=== PATIENT | female | born 1950 | race Caucasian/White ===

== ENCOUNTER 2016-07-17 08:44 | Outpatient (CLI) | payer OTHER | END 2016-07-17 08:45 | disposition home or self-care (01) | DX: E78.5 Hyperlipidemia, unspecified (principal) ==

== ENCOUNTER 2016-12-02 09:14 | Outpatient (CLI) | payer OTHER ==
[2016-12-02 19:51] LABS: ALBUMIN/GLOBULIN RATIO 1.4 (1.0-2.2); BILIRUBIN,TOTAL 0.6 mg/dL (0.2-1.0); BUN - BLOOD UREA NITROGEN 12 mg/dL (6-20); CALCIUM 9.5 mg/dL (8.5-10.3); CARBON DIOXIDE - CO2 23 mmol/L (21-32); CHLORIDE 107 mmol/L (101-111); CHOL/HDL RATIO 3.6 (<4.4); CHOLESTEROL 138 mg/dL; CREATININE 0.6 mg/dL (0.4-1.0); GFR - MDRD 101 (>89); GLUCOSE 108 mg/dL (70-100); HDL CHOLESTEROL 38 mg/dL; LDL/HDL RATIO 1.2 (<4.4); POTASSIUM 4.1 mmol/L (3.5-5.0); SODIUM 142 mmol/L (135-145); TOTAL PROTEIN 7.3 g/dL (6.7-8.2); TRIGLYCERIDES 278 mg/dL; VLDL CHOLESTEROL 56 mg/dL
[2016-12-02 20:35] LABS: HEMOGLOBIN A1C 0.61 g/dL
== END 2016-12-02 09:15 | disposition home or self-care (01) ==
LOC: LAB.F 09:14
PROVIDERS: ATTEND Nurse Practitioner Family
DX: E78.5 Hyperlipidemia, unspecified (principal); R73.01 Impaired fasting glucose
CPT/HCPCS: 36415; 80053; 80061; 83036

== ENCOUNTER 2017-07-24 09:15 | Outpatient (CLI) | payer MEDICARE, OTHER ==
[2017-07-24 17:47] LABS: BASOPHILS # (AUTO) 0.1 10^3/uL (0.0-0.1); BASOPHILS % (AUTO) 0.9 %; EOSINOPHILS # (AUTO) 0.5 10^3/uL (0.0-0.7); EOSINOPHILS % (AUTO) 5.7 %; HGB - HEMOGLOBIN 12.3 g/dL (12.0-16.0); LYMPHOCYTES # (AUTO) 1.9 10^3/uL (1.5-3.5); LYMPHOCYTES % (AUTO) 22.5 %; MEAN CORPUSCULAR HEMOGLOBIN 28.2 pg (27.0-31.0); MEAN CORPUSCULAR HGB CONC 32.3 g/dL (32.0-36.0); MEAN CORPUSCULAR VOLUME 87.1 fL (81.0-99.0); MEAN PLATELET VOLUME 7.4 fL (7.9-10.8); MONOCYTES # (AUTO) 0.6 10^3/uL (0.0-1.0); MONOCYTES % (AUTO) 7.6 %; NEUTROPHILS # (AUTO) 5.4 10^3/uL (1.5-6.6); NEUTROPHILS % (AUTO) 63.3 %; PLT - PLATELET COUNT 363 10^3/uL (130-450); RED BLOOD COUNT 4.36 10^6/uL (4.20-5.40); WHITE BLOOD COUNT 8.4 x10^3/uL (4.8-10.8)
[2017-07-24 18:32] LABS: ALBUMIN 4.2 g/dL (3.2-5.5); ALBUMIN/GLOBULIN RATIO 1.3 (1.0-2.2); BILIRUBIN,TOTAL 0.6 mg/dL (0.2-1.0); CALCIUM 8.8 mg/dL (8.5-10.3); CREATININE 0.5 mg/dL (0.4-1.0); TOTAL PROTEIN 7.4 g/dL (6.7-8.2); URIC ACID 6.4 mg/dL (2.6-7.2)
[2017-07-24 19:38] LABS: HEMOGLOBIN A1C 0.56 g/dL; HEMOGLOBIN A1C % 5.8 % (4.6-6.2)
== END 2017-07-24 09:16 | disposition home or self-care (01) ==
LOC: LAB.F 09:15
PROVIDERS: ATTEND Nurse Practitioner Family
DX: M79.672 Pain in left foot (principal); R73.01 Impaired fasting glucose
CPT/HCPCS: 36415; 80053; 83036; 84550; 85025

== ENCOUNTER 2018-05-26 09:51 | Outpatient (CLI) | payer MEDICARE, OTHER ==
[2018-05-26 17:57] LABS: BASOPHILS % (AUTO) 0.4 %; EOSINOPHILS # (AUTO) 0.4 10^3/uL (0.0-0.7); EOSINOPHILS % (AUTO) 5.4 %; HGB - HEMOGLOBIN 10.8 g/dL (12.0-16.0); LYMPHOCYTES # (AUTO) 1.7 10^3/uL (1.5-3.5); LYMPHOCYTES % (AUTO) 21.8 %; MEAN CORPUSCULAR HEMOGLOBIN 23.5 pg (27.0-31.0); MEAN CORPUSCULAR HGB CONC 30.7 g/dL (32.0-36.0); MEAN CORPUSCULAR VOLUME 76.6 fL (81.0-99.0); MEAN PLATELET VOLUME 7.6 fL (7.9-10.8); MONOCYTES # (AUTO) 0.6 10^3/uL (0.0-1.0); MONOCYTES % (AUTO) 7.8 %; NEUTROPHILS % (AUTO) 64.6 %; PLT - PLATELET COUNT 424 10^3/uL (130-450); RED BLOOD COUNT 4.59 10^6/uL (4.20-5.40); RED CELL DISTRIBUTION WIDTH 17.4 % (12.0-15.0); WHITE BLOOD COUNT 7.8 x10^3/uL (4.8-10.8)
[2018-05-26 18:10] LABS: ALBUMIN 4.1 g/dL (3.2-5.5); ALBUMIN/GLOBULIN RATIO 1.1 (1.0-2.2); ALKALINE PHOSPHATASE 97 IU/L (42-121); ALT ALANINE AMINOTRANSFERASE 62 IU/L (10-60); AST ASPARTATE AMINOTRANSFERASE 81 IU/L (10-42); BILIRUBIN,TOTAL 0.6 mg/dL (0.2-1.0); BUN - BLOOD UREA NITROGEN 15 mg/dL (6-20); CALCIUM 9.3 mg/dL (8.5-10.3); CARBON DIOXIDE - CO2 25 mmol/L (21-32); CHLORIDE 104 mmol/L (101-111); CHOL/HDL RATIO 3.6 (<4.4); CHOLESTEROL 133 mg/dL; CREATININE 0.5 mg/dL (0.4-1.0); GFR - MDRD 123 (>89); GLUCOSE 118 mg/dL (70-100); HB2 TOTAL 11.3 g/dL; HDL CHOLESTEROL 37 mg/dL; HEMOGLOBIN A1C 0.52 g/dL; HEMOGLOBIN A1C % 6.4 % (4.6-6.2); LDL CHOLESTEROL,CALCULATED 38 mg/dL; SODIUM 139 mmol/L (135-145); TOTAL PROTEIN 7.7 g/dL (6.7-8.2); VLDL CHOLESTEROL 58 mg/dL
== END 2018-05-26 09:52 | disposition home or self-care (01) ==
LOC: LAB.F 09:51
PROVIDERS: ATTEND Nurse Practitioner Family
DX: E78.5 Hyperlipidemia, unspecified (principal); R73.01 Impaired fasting glucose; F41.8 Other specified anxiety disorders
CPT/HCPCS: 36415; 80053; 80061; 83036; 83721; 84443; 85025

== ENCOUNTER 2018-06-14 11:10 | Outpatient (CLI) | payer MEDICARE, OTHER ==
[2018-06-14 18:15] LABS: % IRON SATURATION 5 % (20-50); IRON 26 ug/dL (28-170); TOTAL IRON BINDING CAPACITY 524 ug/dL (250-450); TRANSFERRIN 374 mg/dL (192-382)
== END 2018-06-14 11:11 | disposition home or self-care (01) ==
LOC: LAB.F 11:10
PROVIDERS: ATTEND Nurse Practitioner Family
DX: D50.9 Iron deficiency anemia, unspecified (principal)
CPT/HCPCS: 36415; 82728; 83540; 84466

== ENCOUNTER 2018-07-22 11:17 | Outpatient (CLI) | payer MEDICARE, OTHER | END 2018-07-22 11:18 | disposition home or self-care (01) | LOC: LAB.F 11:17 | PROVIDERS: ATTEND Nurse Practitioner Family | DX: D50.9 Iron deficiency anemia, unspecified (principal) | CPT/HCPCS: 36415; 82728 ==

== ENCOUNTER 2018-07-22 12:13 | Outpatient (CLI) | payer MEDICARE, OTHER ==
--- NOTE | 2018-07-22 14:37 | XRAY Report ---
Reason: FINGER PAIN,RIGHT Procedure Date: 07/22/2018 Accession Number: [id number] / [id number] Procedure: XR - Hand 3 View BILAT CPT Code: FULL RESULT: EXAMS: 1. Right Hand Radiography 2. Left Hand Radiography EXAM DATE: 07/22/2018 12:41 PM. CLINICAL HISTORY: Finger pain, right. COMPARISON: None. TECHNIQUE: 3 views each hand. FINDINGS: Right: Bones: Normal. No fractures or bone lesions. Joints: Mild joint space narrowing of multiple interphalangeal joints and mild to moderate degenerative changes of the first carpometacarpal interface. No timothy subluxation. Soft Tissues: Normal. No soft tissue swelling. Left: Bones: Normal. No fractures or bone lesions. Joints: Mild joint space narrowing of interphalangeal joints without erosions detected. Mild degenerative changes at the base of the thumb. Soft Tissues: 1 mm angular calcific density projecting over the soft tissues medial to the third proximal interphalangeal joint, correlate to prior trauma. IMPRESSION: Osteoarthrosis. RADIA
== END 2018-07-22 12:14 | disposition home or self-care (01) ==
LOC: DI 12:13
PROVIDERS: ATTEND Nurse Practitioner Family
DX: M19.042 Primary osteoarthritis, left hand (principal); M19.041 Primary osteoarthritis, right hand; D50.9 Iron deficiency anemia, unspecified
CPT/HCPCS: 36415; 82728

== ENCOUNTER 2018-07-29 13:22 | Outpatient (CLI) | payer MEDICARE, OTHER ==
[2018-07-29 17:20] LABS: BASOPHILS # (AUTO) 0.1 10^3/uL (0.0-0.1); EOSINOPHILS # (AUTO) 0.4 10^3/uL (0.0-0.7); EOSINOPHILS % (AUTO) 4.6 %; HGB - HEMOGLOBIN 12.8 g/dL (12.0-16.0); LYMPHOCYTES # (AUTO) 2.2 10^3/uL (1.5-3.5); LYMPHOCYTES % (AUTO) 28.4 %; MEAN CORPUSCULAR HEMOGLOBIN 25.5 pg (27.0-31.0); MEAN CORPUSCULAR HGB CONC 31.3 g/dL (32.0-36.0); MEAN CORPUSCULAR VOLUME 81.5 fL (81.0-99.0); MEAN PLATELET VOLUME 7.7 fL (7.9-10.8); MONOCYTES # (AUTO) 0.5 10^3/uL (0.0-1.0); MONOCYTES % (AUTO) 6.8 %; NEUTROPHILS # (AUTO) 4.7 10^3/uL (1.5-6.6); NEUTROPHILS % (AUTO) 59.2 %; PLT - PLATELET COUNT 372 10^3/uL (130-450); RED BLOOD COUNT 5.01 10^6/uL (4.20-5.40); RED CELL DISTRIBUTION WIDTH 25.8 % (12.0-15.0); WHITE BLOOD COUNT 7.8 x10^3/uL (4.8-10.8)
[2018-07-29 17:54] LABS: % IRON SATURATION 9 % (20-50); IRON 40 ug/dL (28-170); TOTAL IRON BINDING CAPACITY 426 ug/dL (250-450); TRANSFERRIN 304 mg/dL (192-382)
[2018-07-29 18:15] LABS: PLATELET ESTIMATE, MANUAL NORMAL (130-450,000) (NORMAL); PLATELET MORPHOLOGY NORMAL APPEARANCE (NORMAL)
[2018-07-29 18:16] LABS: RBC MORPHOLOGY (MULTIPLE) 2+ ANISOCYTOSIS (NORMAL)
== END 2018-07-29 13:23 | disposition home or self-care (01) ==
LOC: LAB.F 13:22
PROVIDERS: ATTEND Nurse Practitioner Family
DX: D50.9 Iron deficiency anemia, unspecified (principal)
CPT/HCPCS: 36415; 83540; 84466; 85025

== ENCOUNTER 2018-10-07 11:08 | Outpatient (CLI) | payer MEDICARE, OTHER ==
--- NOTE | 2018-10-07 12:25 | Ultrasound Report ---
Reason: FAMILY AND PERSONAL HX OF BLOOD DISORDER Procedure Date: 10/07/2018 Accession Number: [id number] / [id number] Procedure: US - Duplex Ext Veins Left CPT Code: FULL RESULT: EXAM: LEFT LOWER EXTREMITY VENOUS ULTRASOUND EXAM DATE: 10/07/2018 11:25 AM. CLINICAL HISTORY: FAMILY AND PERSONAL HISTORY OF BLOOD DISORDER. COMPARISON: None. TECHNIQUE: Real-time sonographic vascular imaging was performed by the relationship banker through the lower extremity utilizing both color-flow and Doppler spectral analysis. Multiple small business representative static images were saved for review. FINDINGS: Common Femoral Vein (CFV): Normal. CFV-GSV Junction: Normal. Profunda Femoral Vein (PFV): Normal. Femoral Vein (FV) Prox: Normal. Femoral Vein (FV) Mid: Normal. Femoral Vein (FV) Dist: Normal. Popliteal Vein: Normal. Posterior Tibial Veins: Normal. Peroneal Veins: Normal. Contralateral Side CFV: Normal. Other: None. IMPRESSION: No evidence for left lower extremity deep venous thrombosis. RADIA
== END 2018-10-07 11:09 | disposition home or self-care (01) ==
LOC: DI 11:08
PROVIDERS: ATTEND Internal Medicine Hematology & Oncology
DX: Z86.718 Personal history of other venous thrombosis and embolism (principal); Z79.01 Long term (current) use of anticoagulants; D68.51 Activated protein C resistance; D68.2 Hereditary deficiency of other clotting factors

== ENCOUNTER 2018-11-26 12:30 | Outpatient (CLI) | payer MEDICARE, OTHER | END 2018-11-26 12:31 | disposition home or self-care (01) | LOC: LAB.S 12:30 | PROVIDERS: ATTEND Registered Nurse | DX: M79.644 Pain in right finger(s) (principal) | CPT/HCPCS: 36415; 84550 ==

== ENCOUNTER 2018-12-03 10:23 | Outpatient (CLI) | payer MEDICARE, OTHER ==
--- NOTE | 2018-12-06 15:39 | Mammography Report ---
Reason: ROUTINE MAMMO Procedure Date: 12/03/2018 Accession Number: [id number] / [id number] Procedure: MELINDA - Screening Mammo w/Alex CPT Code: FULL RESULT: EXAM: Screening Mammo w/Alex DATE: 12/03/2018 11:01 AM CLINICAL HISTORY: Routine screening TECHNIQUE: (B) - Bilateral CC and MLO views were obtained. COMPARISON: 08/07/2015, 04/08/2013, 02/05/2012 and 02/02/2010 PARENCHYMAL PATTERN: (D) - The breasts demonstrate heterogeneously dense fibroglandular parenchyma bilaterally. FINDINGS: No significant interval change. There are no suspicious masses, calcifications, or areas of distortion. Several scattered nodular densities in both breasts are grossly stable allowing for technical differences. IMPRESSION: Negative examination. BI-RADS category 1. RECOMMENDATION: (ANNUAL) - Recommend routine annual screening mammography. BI-RADS CATEGORY: (1) - Negative. STANDARD QUALIFYING STATEMENTS: 1. This examination was not reviewed with the aid of Computer-Aided Detection (CAD). 2. A negative or benign imaging report should not preclude biopsy if clinically suspicious findings are present. 3. Dense breasts may obscure an underlying neoplasm. 4. This examination was reviewed with the aid of 3D breast imaging (tomosynthesis).
== END 2018-12-03 10:24 | disposition home or self-care (01) ==
LOC: DI 10:23
DX: Z00.00 Encounter for general adult medical examination without abnormal findings (principal); Z12.31 Encounter for screening mammogram for malignant neoplasm of breast; Z78.0 Asymptomatic menopausal state
CPT/HCPCS: 77063; 77067

== ENCOUNTER 2019-05-27 08:17 | Outpatient (CLI) | payer MEDICARE, OTHER ==
[2019-05-27 10:29] LABS: BASOPHILS # (AUTO) 0.1 10^3/uL (0.0-0.1); BASOPHILS % (AUTO) 0.7 %; EOSINOPHILS # (AUTO) 0.6 10^3/uL (0.0-0.7); LYMPHOCYTES # (AUTO) 2.3 10^3/uL (1.5-3.5); LYMPHOCYTES % (AUTO) 28.6 %; MEAN CORPUSCULAR HGB CONC 31.1 g/dL (32.0-36.0); MEAN CORPUSCULAR VOLUME 90.1 fL (81.0-99.0); MEAN PLATELET VOLUME 9.3 fL (7.9-10.8); MONOCYTES # (AUTO) 0.6 10^3/uL (0.0-1.0); MONOCYTES % (AUTO) 7.6 %; NEUTROPHILS # (AUTO) 4.6 10^3/uL (1.5-6.6); NEUTROPHILS % (AUTO) 55.7 %; PLT - PLATELET COUNT 326 10^3/uL (130-450); RED BLOOD COUNT 4.64 10^6/uL (4.20-5.40); RED CELL DISTRIBUTION WIDTH 14.6 % (12.0-15.0); WHITE BLOOD COUNT 8.2 x10^3/uL (4.8-10.8)
[2019-05-27 10:46] LABS: ALBUMIN/GLOBULIN RATIO 1.2 (1.0-2.2); ALKALINE PHOSPHATASE 72 IU/L (42-121); ALT ALANINE AMINOTRANSFERASE 49 IU/L (10-60); AST ASPARTATE AMINOTRANSFERASE 43 IU/L (10-42); BILIRUBIN,TOTAL 0.7 mg/dL (0.2-1.0); BUN - BLOOD UREA NITROGEN 22 mg/dL (6-20); CALCIUM 9.3 mg/dL (8.5-10.3); CARBON DIOXIDE - CO2 23 mmol/L (21-32); CHLORIDE 105 mmol/L (101-111); CHOL/HDL RATIO 4.5 (<4.4); CHOLESTEROL 174 mg/dL; CREATININE 0.7 mg/dL (0.4-1.0); GFR - MDRD 83 (>89); GLUCOSE 129 mg/dL (70-100); HDL CHOLESTEROL 39 mg/dL; SODIUM 138 mmol/L (135-145); TOTAL PROTEIN 7.4 g/dL (6.7-8.2)
[2019-05-27 11:32] LABS: LDL CHOLESTEROL,DIRECT 74 mg/dL; LDLD/HDL RATIO 1.9 (<4.4)
== END 2019-05-27 08:18 | disposition home or self-care (01) ==
LOC: LAB.S 08:17
PROVIDERS: ATTEND Registered Nurse
DX: D50.9 Iron deficiency anemia, unspecified (principal); I10 Essential (primary) hypertension; F41.8 Other specified anxiety disorders; E66.9 Obesity, unspecified; R73.01 Impaired fasting glucose; E78.5 Hyperlipidemia, unspecified; Z83.2 Family history of diseases of the blood and blood-forming organs and certain disorders involving the immune mechanism
CPT/HCPCS: 36415; 80053; 80061; 83721; 84443; 85025

== ENCOUNTER 2019-09-08 13:23 | Outpatient (CLI) | payer MEDICARE, OTHER ==
--- NOTE | 2019-09-09 08:52 | Mammography Report ---
UNILATERAL RIGHT DIGITAL DIAGNOSTIC MAMMOGRAM 3D/2D: 09/08/2019 CLINICAL: Focal right breast pain. Comparison is made to exams dated: 12/03/2018 mammogram and 08/07/2015 mammogram - [facility]. There are scattered fibroglandular elements in right breast. No significant masses, calcifications, or other findings are seen in the breast. The patient is curr ently asymptomatic and has no palpable masses. Patient has been asymptomatic approximately 6 weeks from time of onset of pain in May 2019. IMPRESSION: NEGATIVE There is no abnormality seen in the right breast to correspond with previous area of clinical concern and pain indicated by square marker in the anterior depth in the outer aspect which has since resolv ed. There is no mammographic evidence of malignancy. Stable mammographic evaluation since most recent scr eening mammogram dated 12/03/2018. A follow-up bilateral mammogram in 6 months is recommended to return patient to bilateral screening s [facility]. This exam was interpreted at Station ID: [id number]. NOTE: For mammograms, a report in lay terms will be sent to the patient. Approximately 15% of breast malignancies will not be visualized mammographically. In the management of a palpable breast mass, a negative mammogram must not discourage biopsy of a clinically suspicious lesion. Electronically Signed By: Ron Mireles M.D. aty/:09/08/2019 14:27:21 ACR BI-RADS Category 1: Negative 3341F PARENCHYMAL PATTERN: (A) - The breast(s) demonstrate(s) scattered fibroglandular densities. BI-RADS CATEGORY: (1) - 1 Mammogram [id number] 6 month follow-up LATERALITY: (B)
== END 2019-09-08 13:24 | disposition home or self-care (01) ==
LOC: DI 13:23
PROVIDERS: ATTEND Registered Nurse
DX: N64.4 Mastodynia (principal)
CPT/HCPCS: 77065; G0279

== ENCOUNTER 2019-12-15 15:23 | Outpatient (CLI) | payer MEDICARE, OTHER ==
--- NOTE | 2019-12-15 16:17 | XRAY Report ---
PROCEDURE: Cervical Spine 2 View INDICATIONS: NECK PAIN TECHNIQUE: 3 view(s) of the cervical spine were acquired. COMPARISON: None. FINDINGS: Bones: No fractures or dislocations to the C7 level. The lateral masses of C1 appear intact on the odontoid view. No suspicious bony lesions. There is grade IC4 on C5 anterolisthesis. Mild osteophyt osis is present within the mid cervical spine. There is slightly exaggerated cervical lordosis. Soft tissues: No prevertebral soft tissue swelling. IMPRESSION: Mild degenerative change. Reviewed by: Blanca Pineda MD on 12/15/2019 4:16 PM PDT Approved by: Blanca Pineda MD on 12/15/2019 4:16 PM PDT Station ID: [id number]
== END 2019-12-15 15:24 | disposition home or self-care (01) ==
LOC: DI.S 15:23
PROVIDERS: ATTEND Family Medicine
DX: M50.321 Other cervical disc degeneration at C4-C5 level (principal)
CPT/HCPCS: 72040

== ENCOUNTER 2019-12-24 11:10 | Outpatient (CLI) | payer MEDICARE, OTHER ==
--- NOTE | 2019-12-24 18:36 | Ultrasound Report ---
PROCEDURE: Pelvic w/Transvaginal INDICATIONS: VAGINAL BLEEDING TECHNIQUE: Real-time scanning was performed of the pelvic organs, with image documentation. Additional endovagi nal scanning was necessary due to incomplete visualization of the adnexal and endometrial structures by transabdominal scanning. COMPARISON: None. FINDINGS: Transabdominal scanning: Limited scanning through the kidneys shows no hydronephrosis. No pathologi c free abdominal or pelvic fluid. Endovaginal scanning: Uterus: Uterus is normal in size at 6.5 x 3.9 x 5 cm. The endometrium measures 8 mm in combined thi ckness. Within the endometrial stripe, there is a likely polyp seen that measures 9 x 3 mm, with ass ociated vascularity. Along the left anterior uterus, there is intramural/submucosal fibroid seen that measures 2.5 x 2.5 x 2.5 cm. Nabothian cysts are incidentally noted. Ovaries: The right ovary measures 1.5 x 1.5 x 1.6 cm and the left ovary measures 1.8 x 0.9 x 1.1 cm. No significant ovarian abnormalities are seen. No adnexal masses are seen. IMPRESSION: The endometrial stripe is abnormally thickened in this patient with a presenting history of postmenop ausal bleeding. There is an apparent 9 x 3 mm polyp seen, with increased vascularity. Differential di agnosis includes endometrial hyperplasia and endometrial carcinoma. Please consider correlation with endometrial histology, as clinically appropriate. Reviewed by: Wisam Tracy MD on 12/24/2019 5:35 PM POOJA Approved by: Wisam Tracy MD on 12/24/2019 5:35 PM AKFELECIA Station ID: [id number]
== END 2019-12-24 11:11 | disposition home or self-care (01) ==
LOC: DI 11:10
PROVIDERS: ATTEND Family Medicine
DX: N93.9 Abnormal uterine and vaginal bleeding, unspecified (principal); R93.89 Abnormal findings on diagnostic imaging of other specified body structures
CPT/HCPCS: 76830; 76856

== ENCOUNTER 2020-01-25 10:05 | Outpatient (CLI) | payer MEDICARE, OTHER ==
[2020-01-25 15:35] LABS: BASOPHILS # (AUTO) 0.1 10^3/uL (0.0-0.1); BASOPHILS % (AUTO) 0.9 %; EOSINOPHILS # (AUTO) 0.4 10^3/uL (0.0-0.7); EOSINOPHILS % (AUTO) 4.9 %; HGB - HEMOGLOBIN 13.2 g/dL (12.0-16.0); LYMPHOCYTES # (AUTO) 2.7 10^3/uL (1.5-3.5); LYMPHOCYTES % (AUTO) 31.9 %; MEAN CORPUSCULAR HEMOGLOBIN 29.1 pg (27.0-31.0); MEAN CORPUSCULAR VOLUME 91.2 fL (81.0-99.0); MEAN PLATELET VOLUME 9.3 fL (7.9-10.8); MONOCYTES # (AUTO) 0.6 10^3/uL (0.0-1.0); MONOCYTES % (AUTO) 7.1 %; NEUTROPHILS # (AUTO) 4.7 10^3/uL (1.5-6.6); PLT - PLATELET COUNT 335 10^3/uL (130-450); RED BLOOD COUNT 4.53 10^6/uL (4.20-5.40); RED CELL DISTRIBUTION WIDTH 15.3 % (12.0-15.0); WHITE BLOOD COUNT 8.6 x10^3/uL (4.8-10.8)
[2020-01-25 15:52] LABS: ALBUMIN/GLOBULIN RATIO 1.2 (1.0-2.2); BILIRUBIN,TOTAL 0.7 mg/dL (0.2-1.0); CALCIUM 9.4 mg/dL (8.5-10.3); CREATININE 0.9 mg/dL (0.4-1.0); TOTAL PROTEIN 7.4 g/dL (6.7-8.2)
[2020-01-25 15:54] LABS: CREATININE,URINE 104.3 mg/dL; MICROALBUMIN,URINE 31.5 mg/dL (0-300.0)
[2020-01-25 19:52] LABS: HEMOGLOBIN A1c% 6.1 % (4.27-6.07)
== END 2020-01-25 10:06 | disposition home or self-care (01) ==
LOC: LAB.S 10:05
PROVIDERS: ATTEND Registered Nurse
DX: E66.9 Obesity, unspecified (principal); R73.03 Prediabetes; Z86.2 Personal history of diseases of the blood and blood-forming organs and certain disorders involving the immune mechanism; N93.9 Abnormal uterine and vaginal bleeding, unspecified
CPT/HCPCS: 36415; 80053; 82043; 82570; 83036; 85025

== ENCOUNTER 2020-02-03 14:40 | Outpatient (CLI) | payer MEDICARE ==
[2020-02-03 15:30] LABS: BASOPHILS % (AUTO) 0.5 %; EOSINOPHILS # (AUTO) 0.4 10^3/uL (0.0-0.7); EOSINOPHILS % (AUTO) 4.4 %; LYMPHOCYTES # (AUTO) 2.4 10^3/uL (1.5-3.5); LYMPHOCYTES % (AUTO) 28.8 %; MEAN CORPUSCULAR HGB CONC 31.9 g/dL (32.0-36.0); MEAN CORPUSCULAR VOLUME 90.9 fL (81.0-99.0); MEAN PLATELET VOLUME 8.8 fL (7.9-10.8); MONOCYTES # (AUTO) 0.7 10^3/uL (0.0-1.0); MONOCYTES % (AUTO) 8.6 %; NEUTROPHILS # (AUTO) 4.8 10^3/uL (1.5-6.6); NEUTROPHILS % (AUTO) 57.2 %; PLT - PLATELET COUNT 324 10^3/uL (130-450); RED BLOOD COUNT 4.49 10^6/uL (4.20-5.40); RED CELL DISTRIBUTION WIDTH 14.9 % (12.0-15.0); WHITE BLOOD COUNT 8.4 x10^3/uL (4.8-10.8)
== END 2020-02-03 14:41 | disposition home or self-care (01) ==
LOC: LAB 14:40
PROVIDERS: ATTEND Obstetrics & Gynecology
DX: Z01.812 Encounter for preprocedural laboratory examination (principal); N95.0 Postmenopausal bleeding; N84.0 Polyp of corpus uteri; Z20.828 Contact with and (suspected) exposure to other viral communicable diseases
CPT/HCPCS: 36415; 85025; U0004

== ENCOUNTER 2020-02-08 12:06 | Day surgery (SDC) | payer MEDICARE, OTHER ==
[~2020-02-08 12:06] MED LIST: ACETAMINOPHEN 1,000 MG/100 ML 100 ML IV ONE; CELECOXIB 100 MG CAPSULE PO ONE; GABAPENTIN 400 MG CAPSULE ONE
[2020-02-08] MEDS ORDERED: ONDANSETRON 4 MG/2 ML VIAL IVP ONE (12:07)
[2020-02-08] MEDS ORDERED: ePHEDrine 50 MG/ML VIAL IVP ONE (12:07)
[2020-02-08] MEDS ORDERED: MIDAZOLAM 2 MG/2 ML VIAL IVP ONE (12:07)
[2020-02-08] MEDS ORDERED: PROPOFOL 200 MG/20 ML VIAL IVP ONE (12:07)
[2020-02-08] MEDS ORDERED: ACETAMINOPHEN 1,000 MG/100 ML 100 ML IV ONE (12:07)
[2020-02-08] MEDS ORDERED: fentaNYL 100 MCG/2 ML VIAL IVP ONE (12:07)
[2020-02-08] MEDS ORDERED: KETOROLAC 30 MG/ML VIAL IVP ONE (12:07)
[2020-02-08] MEDS ORDERED: METOCLOPRAMIDE 10 MG/2 ML VIAL IVP ONE (12:07)
[2020-02-08] MEDS ORDERED: LACTATED RINGERS 1,000 ML IV ONE ×2 (12:45→15:56)
[2020-02-08] MEDS ORDERED: SILVER NITRATE APPLICATOR TOP ONE ×2 (13:38→15:02)
[2020-02-08] MEDS ORDERED: BUPIVACAINE 0.5% PF 30 ML VIAL ONE (13:38)
--- NOTE | 2020-02-08 13:52 | ANESTHESIA ---
Pre-Anesthesia VS, & Labs - Diagnosis Post menopausal bleeding - Procedure Myosure\ hysteroscopy, D&C w/ myomectomy/polypectomy Vital Signs: Temp Pulse Resp BP Pulse Ox 36.5 C 85 16 146/71 H 100 02/08/20 12:26 02/08/20 12:26 02/08/20 12:26 02/08/20 12:26 02/08/20 12:26 Height: 5 ft 2 in Weight (kg): 97 kg Body Mass Index: 39.1 BMI Classification: Obese - NPO >8 hours - Is Patient ?: No - Lab Results Current Lab Results: Laboratory Tests 02/08/20 12:40: POC Whole Bld Glucose 98 Lab results reviewed: Yes Home Medications and Allergies Home Medications: Ambulatory Orders EPINEPHrine [Epinephrine] 0.3 mg IJ ONCE PRN 02/02/20 Hydrochlorothiazide 12.5 mg PO DAILY 02/02/20 allopurinoL [Zyloprim] 100 mg PO DAILY 02/02/20 metFORMIN [Glucophage] 500 mg PO DAILY 02/08/20 Omeprazole [PriLOSEC] 20 mg ORAL DAILY 10/25/13 Rosuvastatin Calcium 40 mg PO QPM 10/11/18 lisinopriL [Lisinopril] 10 mg PO DAILY 10/11/18 EPINEPHrine [Epinephrine] 0.3 mg IJ ONCE PRN 02/02/20 Hydrochlorothiazide 12.5 mg PO DAILY 02/02/20 allopurinoL [Zyloprim] 100 mg PO DAILY 02/02/20 metFORMIN [Glucophage] 500 mg PO DAILY 02/08/20 Allergies/Adverse Reactions: Allergies Allergy/AdvReac Type Severity Reaction Status Date / Time peanut Allergy Anaphylaxis Verified 11/28/19 12:08 shellfish derived Allergy Anaphylaxis Verified 11/28/19 12:08 colchicine AdvReac Nausea Verified 02/08/20 12:33 sea salt Allergy Edema Uncoded 02/08/20 12:34 Anes History & Medical History - Anesthetic History Anesthesia Complications: reports: No previous complications Family history of Anesthesia Complications: Denies Family history of Malignant Hyperthermia: Denies - Medical History Cardiovascular: reports: Hypertension, High cholesterol, Deep vein thrombosis Pulmonary: reports: None, Asthma (As child.), Other (SOB with exertion) Gastrointestinal: reports: GERD (Controlled) Urinary: reports: Other (GFR 62) Neuro: reports: None Musculoskeletal: reports: None Endocrine/Autoimmune: reports: Type 1 diabetes (Pre DM-on metformin), Other (Gout) Blood Disorders: reports: Anemia (Iron infusion Sep 2018. Fine since then) Skin: reports: None Smoking Status: Former smoker Psychosocial: reports: Alcohol (Daily) - Surgical History General: Cholecystectomy, Colonoscopy Eyes Ears Nose Throat (EENT): Tonsil/Adenoidectomy Gynecologic: section Results - EKG Results EKG Comparison: Reviewed EKG, Normal EKG Exam General: Alert, Oriented x3, Cooperative, No acute distress Dental: WNL Mouth Openin Fingerbreadth Neck Mobility: Normal Mallampati classification: II Thyromental Distance: 4-6 cm Respiratory: Lungs clear Cardiovascular: Regular rate Neurological: Normal speech Mental/Cognitive Status: Alert/Oriented X3 Cognitive Status: Within normal limits Plan Anesthesia Type: General Consent for Procedure(s) Verified and Reviewed: Yes Code Status: Attempt Resuscitation ASA classification: 3-Severe systemic disease Is this case an emergency?: No (Questions answered, Consent obtained.)
[2020-02-08] MEDS ORDERED: NALOXONE 0.4 MG/ML VIAL IVP PRN (13:57)
[2020-02-08] MEDS ORDERED: HYDROmorphone 0.5 MG/0.5 ML SYRINGE IVP PRN (13:57)
[2020-02-08] MEDS ORDERED: ONDANSETRON 4 MG/2 ML VIAL IVP PRN (13:57)
[2020-02-08] MEDS ORDERED: ePHEDrine 50 MG/ML VIAL IVP PRN (13:57)
[2020-02-08] MEDS ORDERED: MORPHINE 2 MG/ML CARPUJECT IVP PRN (13:57)
[2020-02-08] MEDS ORDERED: ATROPINE ABBOJECT 1 MG/10 ML SYRINGE IVP PRN (13:57)
[2020-02-08] MEDS ORDERED: METOCLOPRAMIDE 10 MG/2 ML VIAL IVP PRN (13:57)
[2020-02-08] MEDS ORDERED: fentaNYL 100 MCG/2 ML VIAL IVP PRN (13:57)
[2020-02-08] MEDS ORDERED: LACTATED RINGERS 1,000 ML IV SCH (14:00)
[2020-02-08] MEDS ORDERED: BUPIVACAINE 0.5% PF 30 ML VIAL SUBQ ONE ×2 (15:02)
--- NOTE | 2020-02-08 16:11 | OPERATIVE REPORT ---
Operative Report - General Procedure Date: 02/08/20 Planned Procedure: Hysteroscopy D&C with possible polypectomy Pre-Op Diagnosis: Postmenopausal bleeding. Thickened endometrium Procedure Performed: Hysteroscopy D&C with polypectomy Post Op Diagnosis: Same - Procedure Note Primary Surgeon: Kishan Dominguez MD Anesthesia Provider: Kishan Bright CRNA Pathology: uterine contents IV Fluids (mL): 1,300 Estimated Blood Loss (mL): 5 Urine Output (mL): 5 (in and out catheterization with minimal output) Indications: Patient is a 70 yo female with postmenopausal with bleeding and a thickened endometrium. Pelvic us also suggestive of possible vascular polyp. Patient opted to proceed with hysteroscopy D&C for sampling and removal of polyp. Findings: Uterus sounded to 7 cm. Uterine cavity with small polyp on posterior endometrial cavity. Endometrium with fontaine speckling on surface with right fallopian tube. Bilateral tubal ostia noted. Complications: None - Other Other Information/Narrative: Risks benefits and alternatives to the procedure were reviewed. Consent was again confirmed. Patient was taken to the operating room where she underwent general anesthesia. She was positioned in dorsolithotomy position with legs resting in yellowfin stirrups. She was prepped and draped in the usual sterile fashion. Preoperative antibiotics were not indicated. Preoperative checklist was performed. Exam under anesthesia was performed. Speculum was placed in the vagina and the cervix was visualized. Single-tooth tenaculum was placed at the anterior cervical lip. Paracervical block was administered using a total of 18 cc of 0.5% bupuvicaine without epinephrine was injected at the 4:00 and 8:00 positions lateral to the portio of the cervix. The cervical os was serially dilated with Hegar dilators to accommodate the caliber of the diagnostic hysteroscope. Uterus sounded to 9 cm. The hysteroscope was inserted and findings were noted as above. The hysteroscopic morcellator was inserted through the operative port. The intrauterine polyps were morcellated under direct visualization. Uterine cavity was smooth at close of the procedure. Hysteroscope was removed. Sharp curettage D&C was performed with sharp curettage. All instruments were removed from the uterus. Tenaculum was removed. Tenaculum sites were noted to be hemostatic. All instruments were removed from the vagina. Procedure was well-tolerated without complication. Fluid deficit:145 cc NS
--- NOTE | 2020-02-08 16:14 | ANESTHESIA POST OP EVALUATION ---
Anesthesia Post Eval - Post Anesthesia Eval Vitals: Last Vital Signs Temp 37.2 C 02/08/20 16:10 Pulse 91 02/08/20 16:10 Resp 12 02/08/20 16:10 BP 105/57 L 02/08/20 16:10 Pulse Ox 95 02/08/20 16:10 CV Function Including HR & BP: positive: Stable Pain Control: positive: Satisfactory Nausea & Vomiting: positive: Negative Mental Status: positive: Baseline Respiratory Status: Airway Patent Hydration Status: Satisfactory Anesthesia Complications: positive: None (Awake and alert, to Phase II)
[2020-02-08 16:43] VITALS: BP 123/65
== END 2020-02-08 12:07 | disposition home or self-care (01) ==
LOC: SDS 12:06
PROVIDERS: ATTEND Obstetrics & Gynecology
PROC: 0UDB7ZX Extraction of Endometrium, Via Natural or Artificial Opening, Diagnostic (ICD-10-PCS; 2020-02-08)
PROC: 0UB98ZZ Excision of Uterus, Via Natural or Artificial Opening Endoscopic (ICD-10-PCS; principal; 2020-02-08 13:30)
DX: N95.0 Postmenopausal bleeding (principal); N84.0 Polyp of corpus uteri; R93.89 Abnormal findings on diagnostic imaging of other specified body structures; E66.9 Obesity, unspecified; Z68.39 Body mass index [BMI] 39.0-39.9, adult; I10 Essential (primary) hypertension; Z86.718 Personal history of other venous thrombosis and embolism; R73.01 Impaired fasting glucose; Z87.891 Personal history of nicotine dependence
CPT/HCPCS: 58558; A9270; J0131; J2765; J7120

== ENCOUNTER 2020-05-02 09:45 | Outpatient (CLI) | payer MEDICARE, OTHER ==
[2020-04-09 12:13] VITALS: BP 131/55
--- NOTE | 2020-05-02 14:33 | Mammography Report ---
BILATERAL DIGITAL DIAGNOSTIC MAMMOGRAM 3D/2D: 05/02/2020 CLINICAL: Diffuse right breast pain. Comparison is made to exams dated: 09/08/2019 mammogram, 12/03/2018 mammogram, 08/07/2015 mammogram, and 04/08/2013 mammogram - [facility]. The tissue of both breasts is heterogeneously d ense. This may lower the sensitivity of mammography. No significant masses, calcifications, or other findings are seen in either breast. IMPRESSION: NEGATIVE There is no abnormality seen in the right breast to correspond with the pain, however, clinical follo wup is recommended. There is no mammographic evidence of malignancy. A 1 year screening mammogram is recommended. This exam was interpreted at Station ID: [id number]. NOTE: For mammograms, a report in lay terms will be sent to the patient. Approximately 15% of breast malignancies will not be visualized mammographically. In the management of a palpable breast mass, a negative mammogram must not discourage biopsy of a clinically suspicious lesion. Electronically Signed By: Faisal Estrada M.D. ddp/penrad:05/02/2020 10:49:00 ACR BI-RADS Category 1: Negative 3341F PARENCHYMAL PATTERN: (D) - The breast(s) demonstrate(s) heterogeneously dense fibroglandular darshana ambrosio. BI-RADS CATEGORY: (1) - 1 RECOMMENDATION: (ANNUAL) - Recommend routine annual screening mammography. [id number] 1 year screening LATERALITY: (B)
== END 2020-05-02 09:46 | disposition home or self-care (01) ==
LOC: DI 09:45
PROVIDERS: ATTEND Registered Nurse
DX: N64.4 Mastodynia (principal)

== ENCOUNTER 2020-05-19 08:00 | Outpatient (CLI) | payer MEDICARE, OTHER | END 2020-05-19 23:59 | disposition home or self-care (01) | LOC: LAB.S 08:00 | PROVIDERS: ATTEND Physician Assistant | DX: R05 Cough (principal); R53.83 Other fatigue; R53.81 Other malaise; Z20.822 Contact with and (suspected) exposure to COVID-19 ==

== ENCOUNTER 2020-06-18 10:59 | Outpatient (CLI) | payer MEDICARE, OTHER ==
[2020-06-18 15:21] LABS: BUN - BLOOD UREA NITROGEN 17 mg/dL (6-20); CALCIUM 9.5 mg/dL (8.5-10.3); CARBON DIOXIDE - CO2 25 mmol/L (21-32); CHLORIDE 105 mmol/L (101-111); CHOL/HDL RATIO 3.8 (<4.4); CHOLESTEROL 174 mg/dL; CREATININE 0.7 mg/dL (0.4-1.0); GFR - MDRD 83 (>89); GLUCOSE 113 mg/dL (70-100); HDL CHOLESTEROL 46 mg/dL; POTASSIUM 3.9 mmol/L (3.5-5.0); SODIUM 140 mmol/L (135-145); TRIGLYCERIDES 447 mg/dL
[2020-06-18 15:46] LABS: LDL CHOLESTEROL,DIRECT 75 mg/dL; LDLD/HDL RATIO 1.6 (<4.4)
[2020-06-18 19:41] LABS: ESTIMATED AVERAGE GLUCOSE 134 mg/dL (70-100); HEMOGLOBIN A1c% 6.3 % (4.27-6.07)
== END 2020-06-18 11:00 | disposition home or self-care (01) ==
LOC: LAB.S 10:59
PROVIDERS: ATTEND Registered Nurse
DX: E78.5 Hyperlipidemia, unspecified (principal); R73.03 Prediabetes
CPT/HCPCS: 36415; 80048; 80061; 83036; 83721

== ENCOUNTER 2020-08-05 10:24 | Emergency (ER) | payer MEDICARE, OTHER ==
[2020-08-05] MEDS ORDERED: ACETAMINOPHEN 325 MG TABLET PO STA (11:04)
[2020-08-05] MEDS ORDERED: lisinopriL 5 MG TABLET PO STA (11:04)
[2020-08-05] MEDS ORDERED: hydroCHLOROthiazide 25 MG TABLET PO STA (11:04)
--- NOTE | 2020-08-05 12:05 | CT Report ---
PROCEDURE: HEAD WO INDICATIONS: Headache TECHNIQUE: Noncontrast 4.5 mm thick angled axial sections acquired from the foramen magnum to the vertex. For r adiation dose reduction, the following was used: automated exposure control, adjustment of mA and/or kV according to patient size. COMPARISON: None FINDINGS: Image quality: Excellent. CSF spaces: Basal cisterns are patent. No extra-axial fluid collections. Ventricles are normal in size and shape. Brain: No midline shift. No intracranial masses or hemorrhage. Marquez-white matter interface is norm al. Skull and face: Calvarium and visualized facial bones are intact, without suspicious lesions. Sinuses: Partially visualized chronic sinusitis in the right maxillary sinus, right ethmoid air cells , and right frontal sinus. IMPRESSION: No acute intracranial finding. Chronic right ostiomeatal unit sinusitis. Reviewed by: Horace Vines MD on 08/05/2020 12:04 PM PDT Approved by: Horace Vines MD on 08/05/2020 12:04 PM PDT Station ID: [id number]
--- NOTE | 2020-08-05 12:26 | ED Physician Documentation ---
History of Present Illness - Stated complaint Stated Complaint: HARMON - Chief complaint Chief Complaint: Neuro - History obtained from History obtained from: Patient - Additonal information Additional information: 70-year-old woman with history of chronic headaches over the past month presents with headache gradual in onset today localized to the right forehead and radiating to the neck, associated with nausea and lightheadedness. Patient states that she does have seasonal allergies but has not been taking Claritin recently because she has not been sneezing as much as usual. No focal neurological deficits. Review of Systems Ten Systems: 10 systems reviewed and negative Constitutional: denies: Fever Nose: reports: Congestion Neurologic: reports: Headache. denies: Focal weakness, Numbness, Syncope, Head injury, LOC PD PAST MEDICAL HISTORY - Past Medical History Past Medical History: Yes Cardiovascular: High cholesterol, Deep vein thrombosis Respiratory: Asthma, Other Neuro: Headaches Endocrine/Autoimmune: Other GI: GERD RECYCLABLE MATERIALS SORTER: None : Other HEENT: None Psych: None Musculoskeletal: None Derm: None - Past Surgical History Past Surgical History: Yes General: Cholecystectomy, Colonoscopy /RECYCLABLE MATERIALS SORTER: section HEENT: Tonsil/Adenoidectomy - Present Medications Home Medications: Ambulatory Orders Medication Instructions Recorded Confirmed Omeprazole [PriLOSEC] 20 mg ORAL DAILY 10/25/13 08/05/20 Rosuvastatin Calcium 40 mg PO QPM 10/11/18 08/05/20 lisinopriL [Lisinopril] 10 mg PO DAILY 10/11/18 08/05/20 EPINEPHrine [Epinephrine] 0.3 mg IJ ONCE PRN 02/02/20 08/05/20 Hydrochlorothiazide 12.5 mg PO DAILY 02/02/20 08/05/20 allopurinoL [Zyloprim] 100 mg PO DAILY 02/02/20 08/05/20 Acetaminophen [Tylenol] 650 mg PO Q6H PRN #60 tablet 02/08/20 08/05/20 Ibuprofen [Motrin] 600 mg PO Q6H PRN #60 tab 02/08/20 08/05/20 - Allergies Allergies/Adverse Reactions: Allergies Allergy/AdvReac Type Severity Reaction Status Date / Time peanut Allergy Anaphylaxis Verified 08/05/20 10:46 shellfish derived Allergy Anaphylaxis Verified 08/05/20 10:46 Gold Salts AdvReac Intermediate Edema Verified 08/05/20 10:46 colchicine AdvReac Nausea Verified 08/05/20 10:46 - Social History Does the pt smoke?: No Smoking Status: Never smoker Does the pt drink ETOH?: Yes ETOH Use: Wine Does the pt have substance abuse?: No - Immunizations Immunizations are current?: Yes - POLST Patient has POLST: No PD ED PE NORMAL - Vitals Vital signs reviewed: Yes - General General: Alert and oriented X 3, No acute distress, Well developed/nourished - HEENT HEENT: Atraumatic, PERRL, EOMI, Moist mucous membranes, Other (+R maxillary and frontal sinus ttp. mild R nasal congestion) - Neck Neck: Supple, no meningeal sign - Derm Derm: Normal color, Warm and dry - Extremities Extremities: No deformity - Neuro Neuro: Alert and oriented X 3, lookback coordinator 2-12 intact, No motor deficit, No sensory deficit, Normal speech Results - Vitals Vitals: Vital Signs - 24 hr 08/05/20 08/05/20 08/05/20 10:41 10:57 11:11 Temperature 36.2 C L Heart Rate 87 87 87 Respiratory 16 16 16 Rate Blood Pressure 152/88 H 177/88 H 145/82 H O2 Saturation 95 96 97 Oxygen O2 Source Room air PD MEDICAL DECISION MAKING - ED course ED course: 70-year-old woman presents with headache, found to have chronic sinus changes on the right side on CT. Discussed with the patient who will follow up with her primary doctor as an outpatient. Strict return precautions given. Departure - Departure Disposition: 01 Home, Self Care Clinical Impression: Sinus headache Condition: Good Instructions: Headaches Sinus Comments: You are seen in the emergency department for headaches over the past [address] showed signs of chronic sinus congestion on the right side. Please follow-up with Lyndsay Weber in regards to results. You may need referral to ear nose and throat. Return to the emergency department if you develop any new or worsening symptoms or have other concerns.
[2020-08-05 12:41] VITALS: BP 146/84
[2020-08-05] MEDS ORDERED: DEXAMETHASONE 10 MG/ML VIAL PO STA (12:43)
[2020-08-05] MEDS ORDERED: CHERRY SYRUP 10 ML UDC PO ONE (12:43)
== END 2020-08-05 12:48 | disposition home or self-care (01) ==
LOC: ED 10:24
DX: G44.89 Other headache syndrome (principal)
CPT/HCPCS: 70450; 99284; A9270

== ENCOUNTER 2020-12-06 12:40 | Outpatient (CLI) | payer MEDICARE, OTHER ==
[2020-12-06 15:10] LABS: BASOPHILS # (AUTO) 0.1 10^3/uL (0.0-0.1); BASOPHILS % (AUTO) 0.7 %; EOSINOPHILS # (AUTO) 0.5 10^3/uL (0.0-0.7); EOSINOPHILS % (AUTO) 5.8 %; HCT - HEMATOCRIT 41.1 % (37.0-47.0); HGB - HEMOGLOBIN 12.9 g/dL (12.0-16.0); LYMPHOCYTES # (AUTO) 2.5 10^3/uL (1.5-3.5); LYMPHOCYTES % (AUTO) 29.6 %; MEAN CORPUSCULAR HEMOGLOBIN 28.1 pg (27.0-31.0); MEAN CORPUSCULAR HGB CONC 31.4 g/dL (32.0-36.0); MEAN CORPUSCULAR VOLUME 89.5 fL (81.0-99.0); MEAN PLATELET VOLUME 9.7 fL (7.9-10.8); MONOCYTES # (AUTO) 0.6 10^3/uL (0.0-1.0); MONOCYTES % (AUTO) 7.5 %; NEUTROPHILS # (AUTO) 4.7 10^3/uL (1.5-6.6); NEUTROPHILS % (AUTO) 56.2 %; PLT - PLATELET COUNT 357 10^3/uL (130-450); RED BLOOD COUNT 4.59 10^6/uL (4.20-5.40); RED CELL DISTRIBUTION WIDTH 15.6 % (12.0-15.0); WHITE BLOOD COUNT 8.3 x10^3/uL (4.8-10.8)
[2020-12-06 15:35] LABS: CRP - C-REACTIVE PROTEIN 1.8 mg/dL (0-1.0); CRP HIGH SENSITIVITY 7.8 mg/L
== END 2020-12-06 12:41 | disposition home or self-care (01) ==
LOC: LAB.S 12:40
PROVIDERS: ATTEND Ophthalmology
DX: H47.012 Ischemic optic neuropathy, left eye (principal); M31.6 Other giant cell arteritis
CPT/HCPCS: 36415; 85025; 86140; 86141

== ENCOUNTER 2020-12-07 13:35 | Outpatient (CLI) | payer MEDICARE, OTHER | END 2020-12-07 13:36 | disposition home or self-care (01) | LOC: LAB.S 13:35 | PROVIDERS: ATTEND Registered Nurse | DX: R51.9 Headache, unspecified (principal); H47.012 Ischemic optic neuropathy, left eye; M31.6 Other giant cell arteritis | CPT/HCPCS: 36415; 85651 ==

== ENCOUNTER 2021-04-08 08:00 | Outpatient (CLI) | payer MEDICARE, OTHER | END 2021-04-08 23:59 | LOC: LAB.S 08:00 | PROVIDERS: ATTEND Emergency Medicine | DX: J06.9 Acute upper respiratory infection, unspecified (principal); Z20.822 Contact with and (suspected) exposure to COVID-19 ==

== ENCOUNTER 2022-11-17 09:49 | Outpatient (CLI) | payer MEDICARE, OTHER ==
--- NOTE | 2022-11-18 11:46 | Mammography Report ---
BILATERAL DIGITAL SCREENING MAMMOGRAM 3D/2D: 11/17/2022 CLINICAL: Routine screening. Comparison is made to exams dated: 11/04/2021 mammogram, 05/02/2020 mammogram, 12/03/2018 mammogram, and mammogram - [facility]. Both breasts are heterogeneously dense, which may obscure small masses (category c / 51-75% glandular tissue). No significant masses, calcifications, or other findings are seen in either breast. There has been no significant interval change. IMPRESSION: NEGATIVE There is no mammographic evidence of malignancy. A 1 year screening mammogram is recommended. Based on the Tyrer Cuzick model (a risk assessment model) the patients lifetime risk is 6.6% and her 10 year risk is 4.2%. According to the ACR, ACS, and NCCN guidelines, an annual breast MRI exam enoch g with mammogram is recommended if the patients lifetime risk is 20% or greater. This exam was interpreted at Station ID: [id number]. NOTE: For mammograms, a report in lay terms will be sent to the patient. Approximately 15% of breast malignancies will not be visualized mammographically. In the management of a palpable breast mass, a negative mammogram must not discourage biopsy of a clinically suspicious lesion. Electronically Signed By: Ron nash/galen:11/17/2022 14:07:32 letter sent: No_Letter ACR BI-RADS Category 1: Negative 3341F PARENCHYMAL PATTERN: (D) - The breast(s) demonstrate(s) heterogeneously dense fibroglandular darshana ambrosio. BI-RADS CATEGORY: (1) - 1 Mammogram [id number] 1 year screening LATERALITY: (B)
== END 2022-11-17 09:50 | disposition home or self-care (01) ==
LOC: DI.S 09:49
PROVIDERS: ATTEND Registered Nurse
DX: Z12.31 Encounter for screening mammogram for malignant neoplasm of breast (principal)

== ENCOUNTER 2022-12-16 09:15 | Outpatient (CLI) | payer MEDICARE, OTHER ==
[2022-12-16 14:27] LABS: BASOPHILS # (AUTO) 0.1 10^3/uL (0.0-0.1); BASOPHILS % (AUTO) 0.7 %; EOSINOPHILS # (AUTO) 0.5 10^3/uL (0.0-0.7); HGB - HEMOGLOBIN 13.3 g/dL (12.0-16.0); LYMPHOCYTES % (AUTO) 24.4 %; MEAN CORPUSCULAR HEMOGLOBIN 29.5 pg (27.0-31.0); MEAN CORPUSCULAR HGB CONC 31.7 g/dL (32.0-36.0); MEAN CORPUSCULAR VOLUME 93.1 fL (81.0-99.0); MEAN PLATELET VOLUME 9.1 fL (7.9-10.8); MONOCYTES # (AUTO) 0.7 10^3/uL (0.0-1.0); MONOCYTES % (AUTO) 8.1 %; NEUTROPHILS # (AUTO) 4.9 10^3/uL (1.5-6.6); NEUTROPHILS % (AUTO) 60.6 %; PLT - PLATELET COUNT 336 10^3/uL (130-450); RED BLOOD COUNT 4.51 10^6/uL (4.20-5.40); RED CELL DISTRIBUTION WIDTH 13.6 % (12.0-15.0); WHITE BLOOD COUNT 8.1 x10^3/uL (4.8-10.8)
[2022-12-16 14:42] LABS: ALBUMIN 4.3 g/dL (3.2-5.5); ALBUMIN/GLOBULIN RATIO 1.3 (1.0-2.2); ALKALINE PHOSPHATASE 93 IU/L (42-121); ALT ALANINE AMINOTRANSFERASE 28 IU/L (10-60); AST ASPARTATE AMINOTRANSFERASE 23 IU/L (10-42); BILIRUBIN,TOTAL 0.5 mg/dL (0.2-1.0); BUN - BLOOD UREA NITROGEN 21 mg/dL (6-20); CALCIUM 9.9 mg/dL (8.5-10.3); CARBON DIOXIDE - CO2 26 mmol/L (21-32); CHLORIDE 105 mmol/L (101-111); CHOLESTEROL 139 mg/dL; CREATININE 0.9 mg/dL (0.6-1.3); GFR - MDRD 62 (>89); GLUCOSE 125 mg/dL (74-104); HDL CHOLESTEROL 47 mg/dL; LDL CHOLESTEROL,CALCULATED 29 mg/dL; LDL/HDL RATIO 0.6 (<4.4); POTASSIUM 3.6 mmol/L (3.5-4.5); SODIUM 140 mmol/L (135-145); TOTAL PROTEIN 7.5 g/dL (6.4-8.9); TRIGLYCERIDES 313 mg/dL (48-352); VLDL CHOLESTEROL 63 mg/dL
[2022-12-16 14:59] LABS: THYROID STIMULATING HORMONE 1.31 uIU/mL (0.34-5.60)
== END 2022-12-16 09:16 | disposition home or self-care (01) ==
LOC: LAB.S 09:15
PROVIDERS: ATTEND Registered Nurse
DX: E78.5 Hyperlipidemia, unspecified (principal); Z79.899 Other long term (current) drug therapy; Z13.29 Encounter for screening for other suspected endocrine disorder
CPT/HCPCS: 36415; 80053; 80061; 83721; 84443; 85025